=== PATIENT | male | born 1995 ===

== ENCOUNTER 2021-10-22 08:00 | Outpatient (CLI) | payer OTHER ==
[2021-10-23 00:58] LABS: CHLAMYDIA TRACHOMATIS DNA NEGATIVE (NEGATIVE); NEISSERIA GONORRHOEAE DNA NEGATIVE (NEGATIVE)
== END 2021-10-22 23:59 ==
LOC: LAB 08:00
PROVIDERS: ATTEND Physician Assistant
DX: Z11.3 Encounter for screening for infections with a predominantly sexual mode of transmission (principal); R05.9 Cough, unspecified; R07.0 Pain in throat; Z20.822 Contact with and (suspected) exposure to COVID-19
CPT/HCPCS: 87491; 87591; 87661